=== PATIENT | male | born 1950 | race Caucasian/White ===

== ENCOUNTER 2022-04-13 14:52 | Inpatient (IN) ==
[2022-04-13] MEDS ORDERED: Acetaminophen 325 MG TABLET PO PRN (16:36)
[2022-04-13] MEDS ORDERED: Albuterol 2.5 MG/3 ML NEBULIZER IH PRN (16:36)
[2022-04-13] MEDS ORDERED: *HR* OxyCODONE/APAP 5/325 TABLET PO PRN (16:36)
[2022-04-14] MEDS: *HR* Enoxaparin 40 MG/0.4 ML SYRINGE SQ SCH (05:24)
[2022-04-14 07:51] LABS: Basophils % 0.2 %; Eosinophils # 0.2 K/mcL (0.0-0.6); Eosinophils % 1.8 %; Hematocrit 27.8 % (37.5-50.1); Hemoglobin 9.6 g/dL (12.9-16.9); Immature Granulocytes % 1.2 % (0-4); Lymphocytes # 0.9 K/mcL (0.6-4.6); Mean Corpuscular HGB Conc 34.5 g/dL (31.6-35.5); Mean Corpuscular Hemoglobin 30.9 pg (28.0-33.3); Mean Corpuscular Volume 89.4 fL (83.0-100.0); Mean Platelet Volume 10.5 fL (9.4-12.4); Monocytes # 1.4 K/mcL (0.0-1.3); Neutrophils # 7.8 K/mcL (1.6-8.9); Platelet Count 219 K/mcL (140-400); Red Blood Count 3.11 M/mcL (4.19-5.50); Red Cell Distribution Width 12.8 % (11.5-14.5); Segmented Neutrophils % 74.8 %; White Blood Count 10.4 K/mcL (4.3-11.1)
[2022-04-14 08:21] LABS: BUN/Creatinine Ratio 12 (6-26); Blood Urea Nitrogen 6 mg/dL (8-23); Calcium 8.1 mg/dL (8.6-10.3); Carbon Dioxide 27 mEq/L (23-29); Chloride 95 mEq/L (98-107); Glucose 95 mg/dL (70-105); Osmolality,Calculated 265 (280-300); Potassium 3.7 mEq/L (3.5-5.1); Sodium 129 mEq/L (136-145)
[2022-04-14] MEDS ORDERED: Furosemide 40 MG TABLET PO SCH (09:00)
[2022-04-14] MEDS: Aspirin Enteric Coated 81 MG Tablet PO SCH (10:15)
[2022-04-14] MEDS: amLODIPine 5 MG TABLET PO SCH (11:14)
[2022-04-14] MEDS: Budesonide/Formoterol 160/4.5 1 PUFF INH IH SCH (21:44)
[2022-04-14] MEDS: Levalbuterol 1 PUFF INHALER IH PRN (21:44)
[2022-04-15] MEDS: *HR* Enoxaparin 40 MG/0.4 ML SYRINGE SQ SCH (06:14)
[2022-04-15 08:07] LABS: Basophils % 0.2 %; Eosinophils # 0.2 K/mcL (0.0-0.6); Eosinophils % 1.1 %; Hemoglobin 10.2 g/dL (12.9-16.9); Immature Granulocytes % 0.8 % (0-4); Lymphocytes # 1.5 K/mcL (0.6-4.6); Lymphocytes % 9.1 %; Mean Corpuscular Hemoglobin 30.4 pg (28.0-33.3); Mean Corpuscular Volume 89.6 fL (83.0-100.0); Mean Platelet Volume 10.2 fL (9.4-12.4); Monocytes % 8.6 %; Neutrophils # 13.5 K/mcL (1.6-8.9); Platelet Count 245 K/mcL (140-400); Red Blood Count 3.35 M/mcL (4.19-5.50); Segmented Neutrophils % 80.2 %; White Blood Count 16.8 K/mcL (4.3-11.1)
[2022-04-15 08:09] LABS: Monocytes # 1.4 K/mcL (0.0-1.3)
[2022-04-15] MEDS: Aspirin Enteric Coated 81 MG Tablet PO SCH (08:14)
[2022-04-15] MEDS: amLODIPine 5 MG TABLET PO SCH (08:17)
[2022-04-15] MEDS: Furosemide 20 MG TABLET PO SCH (08:21)
[2022-04-15 08:27] LABS: BUN/Creatinine Ratio 15 (6-26); Blood Urea Nitrogen 7 mg/dL (8-23); Calcium 8.1 mg/dL (8.6-10.3); Carbon Dioxide 25 mEq/L (23-29); Chloride 93 mEq/L (98-107); Glucose 94 mg/dL (70-105); Magnesium 1.7 mg/dL (1.6-2.6); Osmolality,Calculated 260 (280-300); Sodium 126 mEq/L (136-145)
[2022-04-15] MEDS: Budesonide/Formoterol 160/4.5 1 PUFF INH IH SCH ×2 (09:46→22:32)
[2022-04-15] MEDS: Doxycycline 100 MG CAPSULE PO SCH ×2 (13:34→20:06)
[2022-04-16] MEDS: *HR* Enoxaparin 40 MG/0.4 ML SYRINGE SQ SCH (05:13)
[2022-04-16] MEDS: Furosemide 20 MG TABLET PO SCH (08:03)
[2022-04-16] MEDS: Aspirin Enteric Coated 81 MG Tablet PO SCH (08:03)
[2022-04-16] MEDS: Doxycycline 100 MG CAPSULE PO SCH ×2 (08:03→20:58)
[2022-04-16] MEDS: amLODIPine 5 MG TABLET PO SCH (08:03)
[2022-04-16] MEDS: Megestrol Acetate 400 MG/10 ML UDC PO SCH (08:07)
[2022-04-16 08:34] LABS: Basophils % 0.2 %; Eosinophils # 0.1 K/mcL (0.0-0.6); Eosinophils % 0.8 %; Hematocrit 29.1 % (37.5-50.1); Hemoglobin 9.9 g/dL (12.9-16.9); Immature Granulocytes % 1.3 % (0-4); Lymphocytes # 1.1 K/mcL (0.6-4.6); Mean Corpuscular Hemoglobin 30.4 pg (28.0-33.3); Mean Corpuscular Volume 89.3 fL (83.0-100.0); Monocytes # 1.3 K/mcL (0.0-1.3); Monocytes % 8.7 %; Neutrophils # 12.4 K/mcL (1.6-8.9); Platelet Count 255 K/mcL (140-400); Red Blood Count 3.26 M/mcL (4.19-5.50); Red Cell Distribution Width 12.8 % (11.5-14.5); White Blood Count 15.1 K/mcL (4.3-11.1)
[2022-04-16 08:50] LABS: BUN/Creatinine Ratio 15 (6-26); Blood Urea Nitrogen 7 mg/dL (8-23); Calcium 8.2 mg/dL (8.6-10.3); Carbon Dioxide 24 mEq/L (23-29); Chloride 90 mEq/L (98-107); Glucose 102 mg/dL (70-105); Magnesium 1.6 mg/dL (1.6-2.6); Osmolality,Calculated 250 (280-300); Sodium 121 mEq/L (136-145)
[2022-04-16] MEDS: Budesonide/Formoterol 160/4.5 1 PUFF INH IH SCH ×2 (09:23→22:23)
[2022-04-16] MEDS: Levalbuterol 1 PUFF INHALER IH PRN ×2 (09:23→22:23)
[2022-04-16] MEDS: Ondansetron ODT 4 MG TAB.RAPDIS SL PRN (22:52)
[2022-04-17] MEDS: *HR* Enoxaparin 40 MG/0.4 ML SYRINGE SQ SCH (05:13)
[2022-04-17 07:36] LABS: Hematocrit 28.6 % (37.5-50.1); Hemoglobin 9.8 g/dL (12.9-16.9); Mean Corpuscular HGB Conc 34.3 g/dL (31.6-35.5); Mean Corpuscular Hemoglobin 30.5 pg (28.0-33.3); Mean Corpuscular Volume 89.1 fL (83.0-100.0); Mean Platelet Volume 10.5 fL (9.4-12.4); Platelet Count 269 K/mcL (140-400); Red Blood Count 3.21 M/mcL (4.19-5.50); Red Cell Distribution Width 12.8 % (11.5-14.5); White Blood Count 16.5 K/mcL (4.3-11.1)
[2022-04-17 07:51] LABS: BUN/Creatinine Ratio 12 (6-26); Blood Urea Nitrogen 6 mg/dL (8-23); Calcium 8.2 mg/dL (8.6-10.3); Carbon Dioxide 26 mEq/L (23-29); Chloride 93 mEq/L (98-107); Glucose 94 mg/dL (70-105); Osmolality,Calculated 259 (280-300); Potassium 3.9 mEq/L (3.5-5.1); Sodium 126 mEq/L (136-145)
[2022-04-17] MEDS: *HR* OxyCODONE/APAP 5/325 TABLET PO PRN (08:08)
[2022-04-17] MEDS: Megestrol Acetate 400 MG/10 ML UDC PO SCH (08:08)
[2022-04-17] MEDS: Furosemide 20 MG TABLET PO SCH (08:09)
[2022-04-17] MEDS: Aspirin Enteric Coated 81 MG Tablet PO SCH (08:09)
[2022-04-17] MEDS: amLODIPine 5 MG TABLET PO SCH (08:09)
[2022-04-17] MEDS: Doxycycline 100 MG CAPSULE PO SCH ×2 (08:09→20:56)
[2022-04-17] MEDS: Levalbuterol 1 PUFF INHALER IH PRN (09:08)
[2022-04-17] MEDS: Budesonide/Formoterol 160/4.5 1 PUFF INH IH SCH ×2 (09:08→21:16)
[2022-04-17] MEDS ORDERED: Furosemide 20 MG TABLET PO ONE (17:00)
[2022-04-18] MEDS: *HR* Enoxaparin 40 MG/0.4 ML SYRINGE SQ SCH (06:21)
[2022-04-18] MEDS: *HR* OxyCODONE/APAP 5/325 TABLET PO PRN ×2 (08:42→21:28)
[2022-04-18] MEDS: Megestrol Acetate 400 MG/10 ML UDC PO SCH (08:43)
[2022-04-18] MEDS: Furosemide 20 MG TABLET PO SCH (08:43)
[2022-04-18] MEDS: Doxycycline 100 MG CAPSULE PO SCH ×2 (08:43→21:28)
[2022-04-18] MEDS: Aspirin Enteric Coated 81 MG Tablet PO SCH (08:43)
[2022-04-18] MEDS: Levalbuterol 1 PUFF INHALER IH PRN ×2 (10:36→20:52)
[2022-04-18] MEDS: Budesonide/Formoterol 160/4.5 1 PUFF INH IH SCH ×2 (10:37→20:52)
[2022-04-18] MEDS: amLODIPine 5 MG TABLET PO SCH ×2 (13:49→19:04)
[2022-04-19] MEDS: *HR* OxyCODONE/APAP 5/325 TABLET PO PRN (06:50)
[2022-04-19] MEDS: *HR* Enoxaparin 40 MG/0.4 ML SYRINGE SQ SCH (06:51)
[2022-04-19] MEDS: Budesonide/Formoterol 160/4.5 1 PUFF INH IH SCH ×2 (09:20→22:43)
[2022-04-19] MEDS ORDERED: E-Z-HD (BARIUM SULF) SUSPENSION PO ONE (09:21)
[2022-04-19] MEDS ORDERED: E-Z-PAQUE (BARIUM SULF) SUSP 1 BOTTLE PO ONE (09:21)
[2022-04-19 10:21] LABS: Basophils % 0.2 %; Eosinophils % 0.2 %; Hematocrit 30.1 % (37.5-50.1); Hemoglobin 10.4 g/dL (12.9-16.9); Immature Granulocytes % 0.7 % (0-4); Lymphocytes % 8.3 %; Mean Corpuscular HGB Conc 34.6 g/dL (31.6-35.5); Mean Corpuscular Hemoglobin 30.5 pg (28.0-33.3); Mean Corpuscular Volume 88.3 fL (83.0-100.0); Mean Platelet Volume 9.7 fL (9.4-12.4); Monocytes # 1.2 K/mcL (0.0-1.3); Monocytes % 9.9 %; Neutrophils # 9.9 K/mcL (1.6-8.9); Platelet Count 285 K/mcL (140-400); Red Blood Count 3.41 M/mcL (4.19-5.50); Red Cell Distribution Width 13.1 % (11.5-14.5); Segmented Neutrophils % 80.7 %; White Blood Count 12.2 K/mcL (4.3-11.1)
[2022-04-19 10:38] LABS: BUN/Creatinine Ratio 12 (6-26); Blood Urea Nitrogen 5 mg/dL (8-23); Calcium 8.4 mg/dL (8.6-10.3); Carbon Dioxide 25 mEq/L (23-29); Chloride 93 mEq/L (98-107); Glucose 100 mg/dL (70-105); Osmolality,Calculated 257 (280-300); Sodium 125 mEq/L (136-145)
[2022-04-19] MEDS: amLODIPine 5 MG TABLET PO SCH (10:47)
[2022-04-19] MEDS: Megestrol Acetate 400 MG/10 ML UDC PO SCH (11:02)
[2022-04-19] MEDS: Furosemide 20 MG TABLET PO SCH (11:02)
[2022-04-19] MEDS: Aspirin Enteric Coated 81 MG Tablet PO SCH (11:02)
[2022-04-19] MEDS: Doxycycline 100 MG CAPSULE PO SCH ×2 (11:02→20:00)
[2022-04-19] MEDS ORDERED: Furosemide 20 MG TABLET PO ONE (17:00)
[2022-04-20] MEDS: *HR* Enoxaparin 40 MG/0.4 ML SYRINGE SQ SCH (05:19)
[2022-04-20] MEDS: Budesonide/Formoterol 160/4.5 1 PUFF INH IH SCH ×2 (09:30→21:54)
[2022-04-20] MEDS: Furosemide 20 MG TABLET PO SCH ×2 (09:38→17:04)
[2022-04-20] MEDS: Aspirin Enteric Coated 81 MG Tablet PO SCH (09:38)
[2022-04-20] MEDS: Doxycycline 100 MG CAPSULE PO SCH ×2 (09:38→21:35)
[2022-04-20] MEDS: amLODIPine 5 MG TABLET PO SCH (09:39)
[2022-04-20] MEDS: Megestrol Acetate 400 MG/10 ML UDC PO SCH (09:39)
[2022-04-20] MEDS: Ondansetron ODT 4 MG TAB.RAPDIS SL PRN (12:01)
[2022-04-20] MEDS: Levalbuterol 1 PUFF INHALER IH PRN (21:54)
[2022-04-21] MEDS: Furosemide 20 MG TABLET PO SCH ×2 (05:05→16:59)
[2022-04-21] MEDS: *HR* Enoxaparin 40 MG/0.4 ML SYRINGE SQ SCH (05:05)
[2022-04-21 05:58] LABS: Hematocrit 30.6 % (37.5-50.1); Hemoglobin 10.6 g/dL (12.9-16.9); Mean Corpuscular HGB Conc 34.6 g/dL (31.6-35.5); Mean Corpuscular Hemoglobin 30.3 pg (28.0-33.3); Mean Corpuscular Volume 87.4 fL (83.0-100.0); Mean Platelet Volume 10.3 fL (9.4-12.4); Platelet Count 357 K/mcL (140-400); Red Cell Distribution Width 13.1 % (11.5-14.5); White Blood Count 13.4 K/mcL (4.3-11.1)
[2022-04-21 06:23] LABS: BUN/Creatinine Ratio 13 (6-26); Blood Urea Nitrogen 6 mg/dL (8-23); Calcium 8.3 mg/dL (8.6-10.3); Carbon Dioxide 21 mEq/L (23-29); Chloride 93 mEq/L (98-107); Glucose 105 mg/dL (70-105); Magnesium 1.5 mg/dL (1.6-2.6); Osmolality,Calculated 256 (280-300); Sodium 124 mEq/L (136-145)
[2022-04-21] MEDS: Budesonide/Formoterol 160/4.5 1 PUFF INH IH SCH ×2 (08:06→20:57)
[2022-04-21] MEDS: Ondansetron ODT 4 MG TAB.RAPDIS SL PRN ×2 (10:20→21:51)
[2022-04-21] MEDS: amLODIPine 5 MG TABLET PO SCH (10:21)
[2022-04-21] MEDS: Aspirin Enteric Coated 81 MG Tablet PO SCH (10:21)
[2022-04-21] MEDS: Doxycycline 100 MG CAPSULE PO SCH (10:21)
[2022-04-21] MEDS: Megestrol Acetate 400 MG/10 ML UDC PO SCH (10:22)
[2022-04-21] MEDS ORDERED: Saline Nasal Spray 44 ML BOTTLE NS PRN (14:54)
[2022-04-21] MEDS: *HR* OxyCODONE/APAP 5/325 TABLET PO PRN (21:46)
[2022-04-22] MEDS: Furosemide 20 MG TABLET PO SCH ×2 (06:35→21:27)
[2022-04-22] MEDS: *HR* Enoxaparin 40 MG/0.4 ML SYRINGE SQ SCH (06:35)
[2022-04-22 08:27] LABS: Basophils % 0.2 %; Eosinophils # 0.1 K/mcL (0.0-0.6); Eosinophils % 0.4 %; Hematocrit 29.4 % (37.5-50.1); Hemoglobin 10.2 g/dL (12.9-16.9); Lymphocytes # 1.6 K/mcL (0.6-4.6); Lymphocytes % 11.9 %; Mean Corpuscular HGB Conc 34.7 g/dL (31.6-35.5); Mean Corpuscular Hemoglobin 30.3 pg (28.0-33.3); Mean Corpuscular Volume 87.2 fL (83.0-100.0); Mean Platelet Volume 10.1 fL (9.4-12.4); Monocytes # 1.8 K/mcL (0.0-1.3); Monocytes % 13.1 %; Platelet Count 353 K/mcL (140-400); Red Blood Count 3.37 M/mcL (4.19-5.50); Red Cell Distribution Width 13.2 % (11.5-14.5); Segmented Neutrophils % 73.4 %; White Blood Count 13.6 K/mcL (4.3-11.1)
[2022-04-22 08:39] LABS: BUN/Creatinine Ratio 16 (6-26); Blood Urea Nitrogen 9 mg/dL (8-23); Calcium 8.3 mg/dL (8.6-10.3); Carbon Dioxide 23 mEq/L (23-29); Chloride 90 mEq/L (98-107); Glucose 100 mg/dL (70-105); Magnesium 1.7 mg/dL (1.6-2.6); Osmolality,Calculated 251 (280-300); Potassium 4.2 mEq/L (3.5-5.1); Sodium 121 mEq/L (136-145)
[2022-04-22] MEDS: Aspirin Enteric Coated 81 MG Tablet PO SCH (09:17)
[2022-04-22] MEDS: amLODIPine 5 MG TABLET PO SCH (09:19)
[2022-04-22] MEDS: Megestrol Acetate 400 MG/10 ML UDC PO SCH (09:19)
[2022-04-22] MEDS: Levalbuterol 1 PUFF INHALER IH PRN (10:02)
[2022-04-22] MEDS: Budesonide/Formoterol 160/4.5 1 PUFF INH IH SCH ×2 (10:02→20:41)
[2022-04-22] MEDS ORDERED: Tolvaptan 15 MG TABLET PO ONE (11:13)
[2022-04-22] MEDS: *HR* Enoxaparin 60 MG/0.6 ML SYRINGE SQ SCH (18:01)
[2022-04-22] MEDS: Albumin 25% 25gram/100mL 25 GM/100 ML IV.SOLN IVPB SCH (18:02)
[2022-04-23] MEDS: Albumin 25% 25gram/100mL 25 GM/100 ML IV.SOLN IVPB SCH (05:49)
[2022-04-23] MEDS: *HR* Enoxaparin 60 MG/0.6 ML SYRINGE SQ SCH ×2 (05:49→16:38)
[2022-04-23 06:50] LABS: Basophils % 0.2 %; Eosinophils % 0.2 %; Hematocrit 26.7 % (37.5-50.1); Hemoglobin 8.9 g/dL (12.9-16.9); Immature Granulocytes % 1.1 % (0-4); Lymphocytes # 1.5 K/mcL (0.6-4.6); Lymphocytes % 18.1 %; Mean Corpuscular HGB Conc 33.3 g/dL (31.6-35.5); Mean Corpuscular Hemoglobin 29.8 pg (28.0-33.3); Mean Corpuscular Volume 89.3 fL (83.0-100.0); Mean Platelet Volume 9.9 fL (9.4-12.4); Monocytes # 1.3 K/mcL (0.0-1.3); Monocytes % 14.9 %; Neutrophils # 5.6 K/mcL (1.6-8.9); Platelet Count 280 K/mcL (140-400); Red Blood Count 2.99 M/mcL (4.19-5.50); Red Cell Distribution Width 13.2 % (11.5-14.5); Segmented Neutrophils % 65.5 %; White Blood Count 8.5 K/mcL (4.3-11.1)
[2022-04-23 07:02] LABS: BUN/Creatinine Ratio 14 (6-26); Blood Urea Nitrogen 8 mg/dL (8-23); Calcium 8.6 mg/dL (8.6-10.3); Carbon Dioxide 25 mEq/L (23-29); Chloride 99 mEq/L (98-107); Glucose 97 mg/dL (70-105); Magnesium 1.8 mg/dL (1.6-2.6); Osmolality,Calculated 272 (280-300); Potassium 3.7 mEq/L (3.5-5.1); Sodium 132 mEq/L (136-145)
[2022-04-23] MEDS: Megestrol Acetate 400 MG/10 ML UDC PO SCH (07:56)
[2022-04-23] MEDS: Aspirin Enteric Coated 81 MG Tablet PO SCH (07:56)
[2022-04-23] MEDS: Furosemide 20 MG TABLET PO SCH ×2 (07:56→16:44)
[2022-04-23] MEDS: Levalbuterol 1 PUFF INHALER IH PRN (09:41)
[2022-04-23] MEDS: Budesonide/Formoterol 160/4.5 1 PUFF INH IH SCH ×2 (09:41→21:47)
[2022-04-23] MEDS: *HR* Amiodarone 200 MG TABLET PO SCH (11:40)
[2022-04-24] MEDS: *HR* Enoxaparin 60 MG/0.6 ML SYRINGE SQ SCH (05:04)
[2022-04-24] MEDS: Furosemide 20 MG TABLET PO SCH (05:07)
[2022-04-24 06:38] VITALS: RESP 20
[2022-04-24] MEDS: *HR* Amiodarone 200 MG TABLET PO SCH (07:50)
[2022-04-24] MEDS: Megestrol Acetate 400 MG/10 ML UDC PO SCH (08:11)
[2022-04-24] MEDS ORDERED: Aspirin Enteric Coated 81 MG Tablet PO SCH (09:00)
[2022-04-24] MEDS: Budesonide/Formoterol 160/4.5 1 PUFF INH IH SCH (09:03)
[2022-04-24 11:45] LABS: BUN/Creatinine Ratio 12 (6-26); Blood Urea Nitrogen 8 mg/dL (8-23); Calcium 8.6 mg/dL (8.6-10.3); Carbon Dioxide 25 mEq/L (23-29); Chloride 99 mEq/L (98-107); Glucose 123 mg/dL (70-105); Magnesium 1.7 mg/dL (1.6-2.6); Osmolality,Calculated 272 (280-300); Sodium 131 mEq/L (136-145)
[2022-04-24 13:58] VITALS: BP 110/76; PULSE 74; TEMP 97.6; O2SAT 98
== END 2022-04-24 16:15 | disposition other institution (70) | DRG 308 ==
LOC: SUATTDRO 19:24 → INPPIK 19:24
PROVIDERS: ADMIT Internal Medicine; ATTEND Family Medicine